=== PATIENT | female | born 1960 ===

== ENCOUNTER 2016-10-28 07:42 | Day surgery (SDC) | payer OTHER, MEDICAID ==
[~2016-10-28 07:42] MED LIST: Iodixanol 320 MG/ML 200 ML BOTTLE IV ONE; Iodixanol 320 mg/ml 150 ml Bottle IV ONE
[2016-10-28] MEDS ORDERED: Midazolam 2 MG/2 ML VIAL ONE (08:07)
[2016-10-28] MEDS ORDERED: Lidocaine 2% Inj (20ml) ONE (08:07)
[2016-10-28] MEDS ORDERED: Nitroglycerin 50mg in D5W 50 MG/250 ML BOTTLE IV ONE (08:08)
[2016-10-28] MEDS ORDERED: Oxycodone/Acetaminophen 5/325 mg Tab PO PRN (10:35)
[2016-10-28] MEDS ORDERED: Sodium Chloride 0.45% 1,000 ML IV SCH (10:45)
[2016-10-28 11:08] VITALS: TEMP 98.2
[2016-10-28 11:46] VITALS: RESP 12
[2016-10-28 14:21] VITALS: BP 150/81; PULSE 71
--- NOTE | 2016-10-28 17:16 | VASCULAR ---
PROCEDURE: 1. Arch arteriogram 2. Bilateral selective carotid arteriogram 3. Selective left vertebral arteriogram HISTORY: TIA. Evaluate left carotid stenosis and possible cavernous left carotid aneurysm PHYSICIAN(S): Ciro Billy MD. TECHNIQUE: The relative risks and indications of the procedure were explained to the patient and consent obtained. The patient was on Plavix prior to procedure. The patient was placed supine on the arteriogram table and the right groin prepped and draped in usual sterile fashion. Conscious sedation monitoring were provided throughout the procedure by a nurse. Via a right common femoral artery approach, a 5 Iraqi sheath was placed. Through the sheath and over a guidewire 5 Iraqi flush catheter was placed in the ascending aorta and an TURKMEN DSA arch arteriogram performed. The catheter was exchanged for a 5 Iraqi Toy A1 catheter placed in the mid left common carotid artery. A DSA left carotid arteriogram consisting of 2 views of the bifurcation and 3 intracranial views were performed. Next the catheter was placed in the mid right common carotid artery and a DSA right carotid arteriogram consisted of 2 views the bifurcation and 3 intracranial views performed. Finely catheter was placed in the origin of the left vertebral artery and a DSA left vertebral arteriogram consisting of two views of the cervical segment and 2 intracranial views was performed. The sheath was removed and hemostasis obtained with a Perclose device. The patient tolerated the procedure well. FINDINGS: There is mild calcification at the origin of the great vessels. The 3 great vessels are widely patent on the arch few. The vertebral arteries are patent and symmetric in size. There is mild calcified plaque involving the left carotid origin. No significant stenosis is appreciated. The left external carotid artery is widely patent. The internal carotid artery is patent throughout its course. There is mild ectasia of the cavernous segment of the left internal carotid artery. No obvious aneurysm was appreciated. The left M1 and A1 segments are patent. There is no evidence of aneurysm, significant intracranial occlusive disease, or AVM. Proximal right internal carotid artery is widely patent. Minimal posterior plaque is seen. The right external carotid artery is widely patent. The remainder of the right internal carotid artery is patent and normal. The cavernous segment right internal carotid artery is patent. There is a large right P com artery. The right M1 and A1 segments are patent. There is no evidence of aneurysm, AVM, or significant intracranial occlusive disease. The left vertebral artery is patent and normal throughout its course. The basilar artery is normal. There is a hypoplastic right P1 segment, consistent with the large right P com artery. The left P1 segment is normal. IMPRESSION: 1. Widely patent carotid bifurcations bilaterally. 2. No obvious aneurysms. 3. Patent left vertebral artery and posterior circulation.
== END 2016-10-28 14:27 | disposition short-term general hospital (02) ==
LOC: MERGE 07:42 → CATH 07:42
PROVIDERS: ATTEND Radiology Vascular & Interventional Radiology
DX: I65.22 Occlusion and stenosis of left carotid artery (principal); Z86.73 Personal history of transient ischemic attack (TIA), and cerebral infarction without residual deficits
CPT/HCPCS: 36223; 36226; 99152; C1760; C1769 ×2; C1887 ×2; C1894; J1644; J2250; J2405; J3010; J7030